=== PATIENT | male | born 1950 | race Caucasian/White ===

== ENCOUNTER 2017-06-17 07:54 | Emergency (ER) | payer OTHER ==
[~2017-06-17] VITALS: Ht 180.3 cm; Wt 134.4 kg
[~2017-06-17 07:54] MED LIST: BENA1TAB11 PO
[2017-06-17] MEDS ORDERED: ATOR40TA78 PO (08:16)
[2017-06-17] MEDS ORDERED: ZOLP6.253 PO (08:16)
[2017-06-17 08:44] LABS: BASOPHILS # (AUTO) 0.08 x10^3/uL (0-0.1); BASOPHILS % (AUTO) 1 % (0-1); EOSINOPHILS # (AUTO) 0.28 x10^3/uL (0-0.4); EOSINOPHILS % (AUTO) 2 % (1-7); LYMPHOCYTES # (AUTO) 2.39 x10^3/uL (1-3.4); LYMPHOCYTES % (AUTO) 19 % (22-44); MD NO; MEAN CORPUSCULAR HEMOGLOBIN 28.9 pg (27.5-34.5); MEAN CORPUSCULAR VOLUME 87.6 fL (81-97); MEAN PLATELET VOLUME 8.9 fL (7.4-10.4); MONOCYTES # (AUTO) 0.85 x10^3/uL (0.2-0.8); MONOCYTES % (AUTO) 7 % (2-9); NEUTROPHILS # (AUTO) 9.04 x10^3/uL (1.8-6.8); NEUTROPHILS % (AUTO) 72 % (42-75); PLATELET COUNT 288 x10^3/uL (130-400); RED BLOOD COUNT 5.41 x10^6/uL (4.38-5.82); RED CELL DISTRIBUTION WIDTH 13.8 % (9.4-14.8)
[2017-06-17 08:48] LABS: ALANINE AMINOTRANSFERASE 23 U/L (12-78); ALBUMIN 3.7 g/dL (3.4-5.0); ANION GAP 7 mmol/L (5-15); CALCIUM 8.8 mg/dL (8.5-10.1); CHLORIDE 104 mmol/L (98-107); CREATININE 1.14 mg/dL (0.7-1.3)
[2017-06-17 08:52] LABS: ALKALINE PHOSPHATASE 103 U/L (45-117); BILIRUBIN,TOTAL 0.5 mg/dL (0.2-1.0); TOTAL PROTEIN 7.2 g/dL (6.4-8.2)
[2017-06-17 09:02] VITALS: BP 101/56
== END 2017-06-17 09:20 | disposition home or self-care (01) ==
LOC: ED 08:21
DX: J20.8 Acute bronchitis due to other specified organisms (principal); B96.89 Other specified bacterial agents as the cause of diseases classified elsewhere; I10 Essential (primary) hypertension; E78.00 Pure hypercholesterolemia, unspecified; Z87.891 Personal history of nicotine dependence
CPT/HCPCS: 36415; 71045; 80053; 83880; 85025; 93005; 99285

== ENCOUNTER → 2018-02-26 | Outpatient (CLI) | payer OTHER ==
[~2018-02-26] MED LIST changes: +ATOR20TA9 PO; +ATOR40TA78 PO; +BENA1TAB9 PO; +CHOL2000 PO; +ZOLP10TA5 PO; +ZOLP6.253 PO
[2018-02-26 11:52] LABS: ALANINE AMINOTRANSFERASE 33 U/L (12-78); ANION GAP 11 mmol/L (5-15); CALCIUM 9.4 mg/dL (8.5-10.1); CHLORIDE 102 mmol/L (98-107); CREATININE 1.05 mg/dL (0.7-1.3)
[2018-02-26 11:54] LABS: ALKALINE PHOSPHATASE 100 U/L (45-117); BILIRUBIN,TOTAL 0.7 mg/dL (0.2-1.0); TOTAL PROTEIN 7.9 g/dL (6.4-8.2)
== END | disposition home or self-care (01) ==
LOC: STAR 10:33
PROVIDERS: ATTEND Thoracic Surgery (Cardiothoracic Vascular Surgery)
DX: Z01.818 Encounter for other preprocedural examination (principal); I44.0 Atrioventricular block, first degree; I25.2 Old myocardial infarction
CPT/HCPCS: 36415; 80053; 93005

== ENCOUNTER 2018-03-05 08:55 | Day surgery (SDC) | payer OTHER ==
[~2018-03-05] VITALS: Ht 180.3 cm; Wt 130.0 kg
[~2018-03-05 08:55] MED LIST changes: +BUPIVACAINE/PF-EPI 0.5% 1:200K ONE
[2018-03-05] MEDS ORDERED: LACTATED RINGERS 1,000 ML IV SCH ×2 (09:08→13:31)
[2018-03-05 09:23] VITALS: BP 102/63
[2018-03-05] MEDS ORDERED: FENTANYL PF 250 MCG/5ML ONE (11:11)
[2018-03-05] MEDS ORDERED: MIDAZOLAM 1 MG/ML, 2ML ONE (11:11)
[2018-03-05] MEDS ORDERED: NEOSTIGMINE 1 MG/ML, 10ML ONE (11:39)
[2018-03-05] MEDS ORDERED: GLYCOPYRROLATE 0.2MG/1ML, 5ML ONE (11:39)
[2018-03-05] MEDS ORDERED: ROCURONIUM 10 MG/ML,10ML ONE (11:39)
[2018-03-05] MEDS ORDERED: PROPOFOL 10 MG/ML, 20ML ONE (11:39)
[2018-03-05] MEDS ORDERED: ONDANSETRON 2MG/ML, 2ML ONE (11:39)
[2018-03-05] MEDS ORDERED: DEXAMETHASONE 4 MG/ML, 1ML ONE (11:39)
[2018-03-05] MEDS ORDERED: CEFAZOLIN 1,000 MG ONE (11:39)
[2018-03-05] MEDS ORDERED: BUPIVACAINE/PF-EPI 0.5% 1:200K INFIL ONE (12:14)
[2018-03-05] MEDS ORDERED: hydrALAzine 20 MG/ML, 1ML IV PRN (12:30)
[2018-03-05] MEDS ORDERED: ACETAMINOPHEN 325 MG TABLET PO PRN (12:30)
[2018-03-05] MEDS ORDERED: LABETALOL 5MG/ML, 20ML IV PRN (12:30)
[2018-03-05] MEDS ORDERED: ALBUTEROL SULFATE 2.5 MG/3 ML NPPB PRN (12:30)
[2018-03-05] MEDS ORDERED: LORazepam 2 MG/ML, 1ML IVPush PRN (12:30)
[2018-03-05] MEDS ORDERED: OXYcodone 5 MG/5 ML ORAL.SOL UDC PO PRN (12:30)
[2018-03-05] MEDS ORDERED: HYDROmorphone 1 MG/ML, 1ML IV PRN (12:30)
[2018-03-05] MEDS ORDERED: KETOROLAC 30 MG/1 ML ONE (13:35)
[2018-03-05] MEDS: FENTANYL PF 100 MCG/2ML IV PRN ×3 (13:35→14:10)
[2018-03-05] MEDS ORDERED: FENTANYL PF 100 MCG/2ML ONE ×2 (13:35→14:13)
[2018-03-05] MEDS ORDERED: OXYcodone 5 MG/5 ML ORAL.SOL UDC ONE (13:40)
[2018-03-05] MEDS ORDERED: KETOROLAC 30 MG/1 ML IVPush PRN ×2 (14:00→15:11)
[2018-03-05] MEDS ORDERED: HYDROmorphone 2 MG/ML, 1ML IVPush PRN (14:00)
[2018-03-05] MEDS ORDERED: ONDANSETRON 2MG/ML, 2ML IVPush PRN (14:00)
[2018-03-05] MEDS: HYDROcodone/APAP 5/325 TABLET PO PRN ×2 (15:36→18:44)
== END 2018-03-05 18:55 | disposition home or self-care (01) ==
LOC: OUT 08:55
PROVIDERS: ATTEND Thoracic Surgery (Cardiothoracic Vascular Surgery)
DX: K43.2 Incisional hernia without obstruction or gangrene (principal); I10 Essential (primary) hypertension; E78.5 Hyperlipidemia, unspecified; E66.01 Morbid (severe) obesity due to excess calories; Z68.41 Body mass index [BMI] 40.0-44.9, adult
CPT/HCPCS: 49656; C1781; J0690; J1100; J1885; J2250; J2405; J2704; J2710; J3010; J3490

== ENCOUNTER → 2018-11-15 | Outpatient (CLI) | payer OTHER ==
[~2018-11-15] MED LIST changes: +ATOR20TA37 PO; -ATOR20TA9 PO; -BUPIVACAINE/PF-EPI 0.5% 1:200K ONE
[2018-11-15 11:00] LABS: ALANINE AMINOTRANSFERASE 23 U/L (12-78); ALBUMIN 3.8 g/dL (3.4-5.0); ANION GAP 6 mmol/L (5-15); CALCIUM 8.9 mg/dL (8.5-10.1); CHLORIDE 105 mmol/L (98-107)
[2018-11-15 11:03] LABS: ALKALINE PHOSPHATASE 107 U/L (45-117); BILIRUBIN,TOTAL 0.8 mg/dL (0.2-1.0); CREATININE 1.17 mg/dL (0.7-1.3); TOTAL PROTEIN 7.4 g/dL (6.4-8.2)
== END | disposition home or self-care (01) ==
LOC: STAR 09:50
PROVIDERS: ATTEND Thoracic Surgery (Cardiothoracic Vascular Surgery)
DX: Z01.818 Encounter for other preprocedural examination (principal); K43.9 Ventral hernia without obstruction or gangrene; R94.31 Abnormal electrocardiogram [ECG] [EKG]
CPT/HCPCS: 36415; 80053; 93005

== ENCOUNTER 2018-11-24 06:45 | Observation (INO) | payer OTHER ==
[~2018-11-24] VITALS: Ht 180.3 cm; Wt 129.0 kg
[2018-11-24] MEDS ORDERED: EPINEPHRINE 1 MG/ML, 1ML ONE (07:00)
[2018-11-24] MEDS ORDERED: BUPIVACAINE/PF 0.5% ONE (07:00)
[2018-11-24] MEDS ORDERED: LACTATED RINGERS 1,000 ML IV SCH (07:40)
[2018-11-24] MEDS ORDERED: TAMSULOSIN 0.4 MG CAP.ER.24H PO ONE (08:39)
[2018-11-24] MEDS ORDERED: TAMSULOSIN 0.4 MG CAP.ER.24H ONE (08:43)
[2018-11-24] MEDS ORDERED: FENTANYL PF 250 MCG/5ML ONE (08:55)
[2018-11-24] MEDS ORDERED: PROPOFOL 50 ML ONE (08:55)
[2018-11-24] MEDS ORDERED: MIDAZOLAM 1 MG/ML, 2ML ONE (08:55)
[2018-11-24] MEDS ORDERED: ROCURONIUM 10 MG/ML,10ML ONE (09:07)
[2018-11-24] MEDS ORDERED: KETOROLAC 30 MG/1 ML ONE (09:07)
[2018-11-24] MEDS ORDERED: ONDANSETRON 2MG/ML, 2ML ONE ×2 (09:23)
[2018-11-24] MEDS ORDERED: DEXAMETHASONE 4 MG/ML, 1ML ONE (09:23)
[2018-11-24] MEDS ORDERED: SUCCINYLCHOLINE 20 MG/ML, 10ML ONE (09:23)
[2018-11-24] MEDS ORDERED: PROPOFOL 10 MG/ML, 20ML ONE (09:23)
[2018-11-24] MEDS ORDERED: CEFAZOLIN 1,000 MG ONE ×2 (09:26)
[2018-11-24] MEDS ORDERED: EPHEDRINE 50 MG/ML, 1ML IVPush PRN (09:30)
[2018-11-24] MEDS ORDERED: OXYcodone 5 MG/5 ML ORAL.SOL UDC PO PRN (09:30)
[2018-11-24] MEDS ORDERED: MIDAZOLAM 1 MG/ML, 2ML IV PRN (09:30)
[2018-11-24] MEDS ORDERED: hydrALAzine 20 MG/ML, 1ML IV PRN ×2 (09:30→10:30)
[2018-11-24] MEDS ORDERED: PROMETHAZINE 25 MG/ML, 1ML IV PRN (09:30)
[2018-11-24] MEDS ORDERED: MEPERIDINE/PF 25MG/0.5ML IVPush PRN (09:30)
[2018-11-24] MEDS ORDERED: ONDANSETRON ODT 8 MG PO PRN (09:30)
[2018-11-24] MEDS ORDERED: ACETAMINOPHEN 325 MG TABLET PO PRN (09:30)
[2018-11-24] MEDS ORDERED: DIAZEPAM 5 MG/ML, 2ML IVPush PRN (09:30)
[2018-11-24] MEDS ORDERED: EPHEDRINE 50 MG/ML, 1ML IM PRN (09:30)
[2018-11-24] MEDS ORDERED: ONDANSETRON 2MG/ML, 2ML IV PRN (09:30)
[2018-11-24] MEDS ORDERED: DIPHENHYDRAMINE 50 MG/ML, 1ML IVPush PRN (09:30)
[2018-11-24] MEDS ORDERED: METOPROLOL 1 MG/ML, 5ML IV PRN (09:30)
[2018-11-24] MEDS: LACTATED RINGERS 1,000 ML IV SCH ×3 (10:27→21:35)
[2018-11-24] MEDS ORDERED: PROMETHAZINE 12.5 MG SUPP PR PRN (10:30)
[2018-11-24] MEDS ORDERED: LORazepam 1MG TABLET PO PRN (10:30)
[2018-11-24] MEDS ORDERED: ACETAMINOPHEN 650 MG/20.3 ML UDC PO PRN (10:30)
[2018-11-24] MEDS: FAMOTIDINE 20 MG/2 ML IV SCH ×2 (10:30→22:30)
[2018-11-24] MEDS ORDERED: ENALAPRILAT 1.25 MG/ML, 2ML IV PRN (10:30)
[2018-11-24] MEDS: FAMOTIDINE 20 MG TABLET PO SCH ×2 (10:30→22:38)
[2018-11-24] MEDS ORDERED: ONDANSETRON 2MG/ML, 2ML IVPush PRN (10:30)
[2018-11-24] MEDS ORDERED: KETOROLAC 30 MG/1 ML IV PRN (10:30)
[2018-11-24] MEDS ORDERED: LORazepam 2 MG/ML, 1ML IV PRN (10:30)
[2018-11-24] MEDS ORDERED: DIPHENHYDRAMINE 50 MG/ML, 1ML IV PRN (10:30)
[2018-11-24] MEDS ORDERED: morphine SULFATE 10 MG/ML, 1ML IV PRN (10:30)
[2018-11-24] MEDS ORDERED: DIPHENHYDRAMINE 25 MG CAPSULE PO PRN (10:30)
[2018-11-24] MEDS ORDERED: PROMETHAZINE 25 MG/ML, 1ML IM PRN (10:30)
[2018-11-24] MEDS ORDERED: EPHEDRINE 50 MG/ML, 1ML ONE (10:48)
[2018-11-24] MEDS ORDERED: OXYcodone 5 MG/5 ML ORAL.SOL UDC ONE (10:48)
[2018-11-24] MEDS ORDERED: ALBUTEROL SULFATE 2.5MG/0.5ML NPPB ONE (11:00)
[2018-11-24] MEDS ORDERED: ALBUTEROL SULFATE 2.5 MG/3 ML ONE (11:01)
[2018-11-24] MEDS ORDERED: MORPHINE SULFATE 4 MG/ML, 1ML ONE (11:15)
[2018-11-24] MEDS ORDERED: FENTANYL PF 100 MCG/2ML ONE ×2 (11:15→11:52)
[2018-11-24] MEDS: MORPHINE SULFATE 4 MG/ML, 1ML IVPush PRN ×4 (11:18→11:54)
[2018-11-24] MEDS: FENTANYL PF 100 MCG/2ML IV PRN ×5 (11:18→11:59)
[2018-11-24] MEDS ORDERED: morphine SULFATE 10 MG/ML, 1ML ONE (11:27)
[2018-11-24] MEDS ORDERED: MEPERIDINE/PF 25MG/ML,1ML ONE (11:44)
[2018-11-24] MEDS: CEFAZOLIN PMX 2GM/100ML 100 ML IVPB SCH (17:18)
[2018-11-24 19:52] VITALS: BP 96/63
[2018-11-24 22:37] VITALS: BP 105/68
[2018-11-24] MEDS: HYDROcodone/APAP 5/325 TABLET PO PRN (22:38)
[2018-11-24 23:45] VITALS: BP 109/69
[2018-11-25] MEDS: CEFAZOLIN PMX 2GM/100ML 100 ML IVPB SCH (00:50)
[2018-11-25 03:45] VITALS: BP 114/74
[2018-11-25 07:45] VITALS: BP 106/69
[2018-11-25] MEDS ORDERED: ENOXAPARIN 40 MG/0.4 ML SQ SCH (09:00)
[2018-11-25] MEDS: HYDROcodone/APAP 5/325 TABLET PO PRN (09:34)
[2018-11-25] MEDS ORDERED: HYDR-3240 PO (10:02)
== END 2018-11-25 10:23 | disposition home or self-care (01) ==
LOC: OUT 06:45 → ORIP 10:27 → 4NOR 13:16 → DCLOUNGE 11-25 10:11
PROVIDERS: ADMIT Thoracic Surgery (Cardiothoracic Vascular Surgery); ATTEND Thoracic Surgery (Cardiothoracic Vascular Surgery)
DX: K43.2 Incisional hernia without obstruction or gangrene (principal); I10 Essential (primary) hypertension; E66.01 Morbid (severe) obesity due to excess calories; Z68.39 Body mass index [BMI] 39.0-39.9, adult; E78.00 Pure hypercholesterolemia, unspecified; Z79.899 Other long term (current) drug therapy
CPT/HCPCS: 49566; 94640; 96365; 96366; 96372; 96375; C1729; C1781; G0378; J0171; J0330; J0690; J1100; J1650; J1885; J2175; J2250; J2270; J2405; J2704; J3010; J7120; J7611; S0020

== ENCOUNTER 2018-11-27 08:20 | Inpatient (IN) | payer OTHER ==
[~2018-11-27] VITALS: Ht 180.3 cm; Wt 128.6 kg
[~2018-11-27 08:20] MED LIST changes: +HYDR-3240 PO
--- NOTE | 2018-11-27 08:40 | NUR ---
PT ARRIVED VIA WHEELCHAIR TO ROOM 14 WITH . PT C/O INCREASING SOB THIS AM WITH ASSOCIATED N/V AND ABDOMINAL PAIN. PT STATES HE HAD A UMBILLICAL HERNIA REPAIR WITH [facility]ESH ON THURSDAY. HE REPORTS HE HAS BEEN TAKING PAIN MEDICATION AND STOOL SOFTENERS BUT HAS NOT HAD A BM SINCE THURSDAY. PT ABDOMEN TENDER TO PALPATION, FIRM, AND SKIN IS TAUT. PT AAO X 4, O2 SATS ON ROOM AIR WDL BUT PT HAS UPPER AIRWAY EXPIRATORY WHEEZES, RESOLVED WITH REPOSITIONING. PT IN GOWN, INCISION SITE DRESSING CDI, ABDOMINAL BINDER IN PLACE, EFREN DRAIN TO SELF-SUCTION AND PT REPORTS ABOUT 20ML SEROUSANG DRAINAGE PER DAY.
[2018-11-27 09:27] LABS: BASOPHILS # (AUTO) 0.03 x10^3/uL (0-0.1); BASOPHILS % (AUTO) 0 % (0-1); EOSINOPHILS # (AUTO) 0.04 x10^3/uL (0-0.4); EOSINOPHILS % (AUTO) 0 % (1-7); LYMPHOCYTES # (AUTO) 0.72 x10^3/uL (1-3.4); LYMPHOCYTES % (AUTO) 5 % (22-44); MD NO; MEAN CORPUSCULAR HEMOGLOBIN 29.2 pg (27.5-34.5); MEAN CORPUSCULAR HGB CONC 32.7 g/dL (33.2-36.2); MEAN CORPUSCULAR VOLUME 89.2 fL (81-97); MEAN PLATELET VOLUME 8.3 fL (7.4-10.4); MONOCYTES # (AUTO) 0.94 x10^3/uL (0.2-0.8); MONOCYTES % (AUTO) 7 % (2-9); NEUTROPHILS # (AUTO) 12.58 x10^3/uL (1.8-6.8); NEUTROPHILS % (AUTO) 88 % (42-75); PLATELET COUNT 288 x10^3/uL (130-400); RED BLOOD COUNT 5.31 x10^6/uL (4.38-5.82); RED CELL DISTRIBUTION WIDTH 13.8 % (9.4-14.8)
[2018-11-27 09:44] LABS: ALBUMIN 3.6 g/dL (3.4-5.0); ANION GAP 12 mmol/L (5-15); CALCIUM 10.2 mg/dL (8.5-10.1); CHLORIDE 99 mmol/L (98-107)
--- NOTE | 2018-11-27 09:46 | NUR ---
WAITING ON LAB RESULTS TO PERFORM CT
[2018-11-27 09:47] LABS: ALANINE AMINOTRANSFERASE 24 U/L (12-78); ALKALINE PHOSPHATASE 101 U/L (45-117); BILIRUBIN,TOTAL 1.3 mg/dL (0.2-1.0); CREATININE 1.19 mg/dL (0.7-1.3); TOTAL PROTEIN 7.7 g/dL (6.4-8.2)
--- NOTE | 2018-11-27 10:16 | NUR ---
PT TO CT.
--- NOTE | 2018-11-27 10:35 | NUR ---
PT BACK FROM CT. ATTACHED TO MONITOR. VSS, PT AAO X 4, FALL PRECAUTIONS IN PLACE.
[2018-11-27] MEDS ORDERED: OMNIPAQUE 350 MG/ML, 100ML BOTTLE ONE (10:49)
--- NOTE | 2018-11-27 11:00 | NUR ---
PT RESTING IN RFARGO, AAO X 4, VSS, FALL PRECAUTIONS IN PLACE, AT BEDSIDE.
[2018-11-27] MEDS ORDERED: METOCLOPRAMIDE 5 MG/ML, 2ML IVPush ONE (12:00)
[2018-11-27] MEDS ORDERED: METOCLOPRAMIDE 5 MG/ML, 2ML ONE (12:26)
[2018-11-27] MEDS ORDERED: BISACODYL 10 MG SUPP PR PRN (12:30)
[2018-11-27] MEDS ORDERED: LABETALOL 5MG/ML, 20ML IVPush PRN (12:30)
[2018-11-27] MEDS ORDERED: ENALAPRILAT 1.25 MG/ML, 2ML IVPush PRN (12:30)
[2018-11-27] MEDS ORDERED: POLYETHYLENE GLYCOL 17 GM PACKET PO PRN (12:30)
[2018-11-27] MEDS ORDERED: DOCUSATE 100 MG CAPSULE PO PRN (12:30)
[2018-11-27] MEDS ORDERED: BISACODYL 10 MG SUPP PR ONE (12:30)
[2018-11-27] MEDS ORDERED: ONDANSETRON ODT 4 MG PO PRN (12:30)
[2018-11-27] MEDS ORDERED: ONDANSETRON 2MG/ML, 2ML IVPush PRN (12:30)
--- NOTE | 2018-11-27 12:32 | NUR ---
REPORT GIVEN TO FLOOR RN.
[2018-11-27 13:06] VITALS: BP 149/92
[2018-11-27] MEDS: ENOXAPARIN 40 MG/0.4 ML SQ SCH (13:37)
[2018-11-27] MEDS: SODIUM CHLORIDE 0.9% 1,000 ML IV SCH ×2 (13:38→20:20)
[2018-11-27 14:24] VITALS: BP 104/42
[2018-11-27] MEDS ORDERED: LIDOCAINE 2%, 6 ML JEL.PF.APP MM ONE (15:44)
[2018-11-27] MEDS: METOCLOPRAMIDE 5 MG/ML, 2ML IVPush SCH (18:07)
[2018-11-27] MEDS: KETOROLAC 30 MG/1 ML IV PRN (20:20)
[2018-11-27] MEDS: FAMOTIDINE 20 MG/2 ML IVPush SCH (20:20)
[2018-11-27 20:35] VITALS: BP 158/95
[2018-11-28 00:12] VITALS: BP 97/61
[2018-11-28] MEDS: METOCLOPRAMIDE 5 MG/ML, 2ML IVPush SCH ×5 (01:06→23:57)
[2018-11-28] MEDS: SODIUM CHLORIDE 0.9% 1,000 ML IV SCH ×3 (04:08→20:08)
[2018-11-28] MEDS: KETOROLAC 30 MG/1 ML IV PRN ×3 (04:08→17:55)
[2018-11-28 04:28] LABS: EOSINOPHILS # (AUTO) 0.16 x10^3/uL (0-0.4); MD NO; MEAN CORPUSCULAR VOLUME 91.2 fL (81-97)
[2018-11-28 04:34] LABS: BASOPHILS # (AUTO) 0.03 x10^3/uL (0-0.1); BASOPHILS % (AUTO) 0 % (0-1); EOSINOPHILS % (AUTO) 2 % (1-7); LYMPHOCYTES # (AUTO) 1.07 x10^3/uL (1-3.4); LYMPHOCYTES % (AUTO) 11 % (22-44); MEAN CORPUSCULAR HEMOGLOBIN 29.8 pg (27.5-34.5); MEAN CORPUSCULAR HGB CONC 32.7 g/dL (33.2-36.2); MEAN PLATELET VOLUME 8.5 fL (7.4-10.4); MONOCYTES # (AUTO) 1.16 x10^3/uL (0.2-0.8); MONOCYTES % (AUTO) 11 % (2-9); NEUTROPHILS # (AUTO) 7.74 x10^3/uL (1.8-6.8); NEUTROPHILS % (AUTO) 76 % (42-75); PLATELET COUNT 311 x10^3/uL (130-400); RED BLOOD COUNT 4.89 x10^6/uL (4.38-5.82); RED CELL DISTRIBUTION WIDTH 14.6 % (9.4-14.8)
[2018-11-28 04:39] LABS: ALANINE AMINOTRANSFERASE 23 U/L (12-78); ANION GAP 5 mmol/L (5-15); CALCIUM 8.9 mg/dL (8.5-10.1); CHLORIDE 105 mmol/L (98-107)
[2018-11-28 04:41] LABS: ALKALINE PHOSPHATASE 76 U/L (45-117); BILIRUBIN,TOTAL 0.8 mg/dL (0.2-1.0); TOTAL PROTEIN 6.6 g/dL (6.4-8.2)
[2018-11-28 07:24] VITALS: BP 115/69
[2018-11-28] MEDS: FAMOTIDINE 20 MG/2 ML IVPush SCH ×2 (08:12→20:02)
[2018-11-28] MEDS: ENOXAPARIN 40 MG/0.4 ML SQ SCH (12:35)
[2018-11-28 12:46] VITALS: BP 124/71
[2018-11-28 20:06] VITALS: BP 148/83
[2018-11-29] MEDS: KETOROLAC 30 MG/1 ML IV PRN ×3 (00:01→15:14)
[2018-11-29 02:16] VITALS: BP 123/65
[2018-11-29] MEDS: SODIUM CHLORIDE 0.9% 1,000 ML IV SCH ×2 (04:25→12:25)
[2018-11-29] MEDS: METOCLOPRAMIDE 5 MG/ML, 2ML IVPush SCH ×3 (05:47→18:18)
[2018-11-29 06:47] VITALS: BP 110/79
[2018-11-29] MEDS: FAMOTIDINE 20 MG/2 ML IVPush SCH ×2 (07:49→20:49)
[2018-11-29 12:14] VITALS: BP 112/72
[2018-11-29] MEDS: ENOXAPARIN 40 MG/0.4 ML SQ SCH (12:35)
[2018-11-29 20:00] VITALS: BP 126/80
[2018-11-30] MEDS: METOCLOPRAMIDE 5 MG/ML, 2ML IVPush SCH ×2 (00:24→06:17)
[2018-11-30] MEDS: KETOROLAC 30 MG/1 ML IV PRN ×2 (00:24→11:12)
[2018-11-30 02:23] VITALS: BP 123/69
[2018-11-30 05:14] LABS: BASOPHILS # (AUTO) 0.03 x10^3/uL (0-0.1); BASOPHILS % (AUTO) 0 % (0-1); EOSINOPHILS % (AUTO) 7 % (1-7); LYMPHOCYTES # (AUTO) 1.88 x10^3/uL (1-3.4); LYMPHOCYTES % (AUTO) 18 % (22-44); MD NO; MEAN CORPUSCULAR HEMOGLOBIN 29.3 pg (27.5-34.5); MEAN CORPUSCULAR HGB CONC 32.3 g/dL (33.2-36.2); MEAN CORPUSCULAR VOLUME 90.8 fL (81-97); MEAN PLATELET VOLUME 8.1 fL (7.4-10.4); MONOCYTES # (AUTO) 0.86 x10^3/uL (0.2-0.8); MONOCYTES % (AUTO) 8 % (2-9); NEUTROPHILS # (AUTO) 6.92 x10^3/uL (1.8-6.8); NEUTROPHILS % (AUTO) 67 % (42-75); PLATELET COUNT 324 x10^3/uL (130-400); RED BLOOD COUNT 4.77 x10^6/uL (4.38-5.82); RED CELL DISTRIBUTION WIDTH 13.9 % (9.4-14.8)
[2018-11-30 05:20] LABS: ANION GAP 7 mmol/L (5-15); CALCIUM 8.6 mg/dL (8.5-10.1); CHLORIDE 109 mmol/L (98-107); CREATININE 1.17 mg/dL (0.7-1.3)
[2018-11-30 06:44] VITALS: BP 134/80
[2018-11-30] MEDS: FAMOTIDINE 20 MG/2 ML IVPush SCH (09:00)
[2018-11-30] MEDS ORDERED: POLYETHYLENE GLYCOL 17 GM PACKET PO SCH (09:00)
[2018-11-30] MEDS ORDERED: DOCUSATE 100 MG CAPSULE PO SCH (09:00)
[2018-11-30] MEDS ORDERED: POLY17PO5 PO (10:25)
[2018-11-30] MEDS ORDERED: DOCU-131 PO (10:25)
== END 2018-11-30 11:50 | disposition home or self-care (01) | DRG 389 ==
LOC: ED 08:36 → EDIP 11:45 → 4WST 12:40 → DCLOUNGE 11-30 11:42
PROVIDERS: ADMIT Internal Medicine; ATTEND Internal Medicine
DX: K56.0 Paralytic ileus (principal); R17 Unspecified jaundice; J98.11 Atelectasis; D72.829 Elevated white blood cell count, unspecified; I10 Essential (primary) hypertension; E78.00 Pure hypercholesterolemia, unspecified; E78.5 Hyperlipidemia, unspecified; E86.0 Dehydration; G89.29 Other chronic pain; E66.9 Obesity, unspecified; Z68.39 Body mass index [BMI] 39.0-39.9, adult; Z80.1 Family history of malignant neoplasm of trachea, bronchus and lung
CPT/HCPCS: 36415; 71275; 74177; 74340; 80048; 80053; 83735; 84100; 85025; 93005; 99285; G0378; J1650; J1885; J2405; Q9967; J2765; J3490; J7030

== ENCOUNTER 2020-04-20 07:23 | Emergency (ER) | payer OTHER ==
[~2020-04-20] VITALS: Ht 180.3 cm; Wt 124.2 kg
[~2020-04-20 07:23] MED LIST changes: +DOCU-131 PO; +POLY17PO5 PO; -ZOLP6.253 PO; +ZOLP6.255 PO
--- NOTE | 2020-04-20 07:36 | NUR ---
Pt BIB [facility]-c/o intermittent dizziness, L sided weakness x3 weeks. Pt reports sx started this morning when he woke up. Pt with tremor in L UE, L sided facial droop, reports this is not baseline. Pt with intermittent double vision and verbal stutter he reports is baseline for him. No other neuro defecits. Pt placed in gown, positioned for comfort in bed with warm blanket. Continuous heart, oxygen and BP monitors applied, all safety measures observed. Clayton JAMES at bedside to evaluate pt.
[2020-04-20] MEDS ORDERED: SODIUM CHLORIDE FLUSH 10ML SYR IVF ONE (08:00)
[2020-04-20 08:25] LABS: BASOPHILS % (AUTO) 1 % (0-1); EOSINOPHILS % (AUTO) 1 % (1-7); LYMPHOCYTES % (AUTO) 18 % (22-44); MEAN CORPUSCULAR HEMOGLOBIN 29.2 pg (27.5-34.5); MEAN CORPUSCULAR HGB CONC 33.5 g/dL (33.2-36.2); MEAN PLATELET VOLUME 9.2 fL (7.4-10.4); MONOCYTES % (AUTO) 8 % (2-9); NEUTROPHILS % (AUTO) 73 % (42-75); PLATELET COUNT 310 x10^3/uL (130-400); RED BLOOD COUNT 5.03 x10^6/uL (4.38-5.82); RED CELL DISTRIBUTION WIDTH 13.6 % (9.4-14.8)
[2020-04-20 08:46] LABS: MD NO
--- NOTE | 2020-04-20 09:00 | NUR ---
pt in bed, no distress, vss, no change,
[2020-04-20 09:10] VITALS: BP 109/47
[2020-04-20 09:13] LABS: ALANINE AMINOTRANSFERASE 19 U/L (12-78); ALBUMIN 3.8 g/dL (3.4-5.0); ANION GAP 8 mmol/L (5-15); CALCIUM 9.4 mg/dL (8.5-10.1); CHLORIDE 104 mmol/L (98-107); CREATININE 1.74 mg/dL (0.7-1.3)
[2020-04-20 09:23] LABS: ALKALINE PHOSPHATASE 107 U/L (45-117); BILIRUBIN,TOTAL 0.7 mg/dL (0.2-1.0); TOTAL PROTEIN 7.6 g/dL (6.4-8.2)
== END 2020-04-20 10:03 | disposition home or self-care (01) ==
LOC: ED 09:50
DX: I12.9 Hypertensive chronic kidney disease with stage 1 through stage 4 chronic kidney disease, or unspecified chronic kidney disease (principal); N18.2 Chronic kidney disease, stage 2 (mild); R53.1 Weakness; I21.9 Acute myocardial infarction, unspecified; R94.31 Abnormal electrocardiogram [ECG] [EKG]; E78.00 Pure hypercholesterolemia, unspecified; Z87.891 Personal history of nicotine dependence
CPT/HCPCS: 36415; 70450; 80053; 84443; 85025; 93005; 99285

== ENCOUNTER 2020-05-04 12:10 | Observation (INO) | payer OTHER ==
[~2020-05-04] VITALS: Ht 180.3 cm; Wt 121.6 kg
[2020-05-04 12:37] VITALS: BP 125/72
[2020-05-04] MEDS ORDERED: ASPIRIN 325 MG TABLET EC PO ONE (13:00)
[2020-05-04] MEDS ORDERED: PLEASE ENTER HEIGHT AND WEIGHT MC SCH (13:00)
[2020-05-04] MEDS: SODIUM CHLORIDE 0.9% 1,000 ML IV SCH ×3 (13:00→22:53)
[2020-05-04 13:24] LABS: ANION GAP 1 mmol/L (5-15); CALCIUM 9.6 mg/dL (8.5-10.1); CHLORIDE 106 mmol/L (98-107); CREATININE 1.56 mg/dL (0.7-1.3)
[2020-05-04] MEDS ORDERED: FENTANYL PF 100 MCG/2ML ONE (14:16)
[2020-05-04] MEDS ORDERED: VERAPAMIL 2.5 MG/ML, 2ML ONE (14:17)
[2020-05-04] MEDS ORDERED: MIDAZOLAM 1 MG/ML, 5ML ONE (14:17)
[2020-05-04] MEDS ORDERED: HEPARIN 1,000 UNITS/ML, 10ML ONE (14:17)
[2020-05-04] MEDS ORDERED: BIVALIRUDIN 250 MG ONE ×2 (14:17→14:43)
[2020-05-04] MEDS ORDERED: LIDOCAINE-MPF 1%, 5ML ONE (14:17)
[2020-05-04] MEDS ORDERED: TICAGRELOR 90 MG TABLET ONE ×2 (14:17→15:05)
[2020-05-04] MEDS ORDERED: NITROGLYCERIN 30 MCG/ML, 20ML VIAL ONE (14:30)
[2020-05-04] MEDS ORDERED: SODIUM CHLORIDE 0.9% 1,000 ML IV SCH (15:30)
[2020-05-04] MEDS ORDERED: METOPROLOL TARTRATE 25 MG TAB ONE (18:36)
[2020-05-04 18:51] VITALS: BP_SYST 131; BP_DIAS 75; BP_DIAS 84
[2020-05-04] MEDS ORDERED: METOPROLOL TARTRATE 50 MG TAB PO SCH ×2 (19:00)
[2020-05-04] MEDS ORDERED: ATORVASTATIN 20 MG TABLET PO SCH (21:00)
[2020-05-04] MEDS: TICAGRELOR 90 MG TABLET PO SCH (22:19)
[2020-05-04] MEDS ORDERED: ZOLPIDEM 10MG TABLET PO SCH (23:00)
[2020-05-05 00:07] VITALS: BP 112/75
[2020-05-05] MEDS: METOPROLOL TARTRATE 25 MG TAB PO SCH ×2 (00:09→08:14)
[2020-05-05 00:45] VITALS: BP 101/66
[2020-05-05 05:19] LABS: ANION GAP 6 mmol/L (5-15); CALCIUM 9.5 mg/dL (8.5-10.1); CHLORIDE 106 mmol/L (98-107); CREATININE 1.63 mg/dL (0.7-1.3)
[2020-05-05 07:09] VITALS: BP 117/78
[2020-05-05] MEDS: TICAGRELOR 90 MG TABLET PO SCH (08:11)
[2020-05-05] MEDS ORDERED: ZOLPIDEM 10MG TABLET PO SCH (09:00)
[2020-05-05] MEDS ORDERED: BENAZEPRIL 20 MG TABLET PO SCH (09:00)
[2020-05-05] MEDS ORDERED: ASPIRIN 81 MG TABLET EC PO SCH (09:00)
[2020-05-05] MEDS ORDERED: HYDROCHLOROTHIAZIDE 25 MG TABLET PO SCH (09:00)
[2020-05-05] MEDS ORDERED: BENA20TA54 PO (09:41)
[2020-05-05] MEDS ORDERED: METO50TA4 PO (09:41)
[2020-05-05] MEDS ORDERED: TICA90TA PO (09:41)
[2020-05-05] MEDS ORDERED: ASPI81TA45 PO (10:32)
== END 2020-05-05 12:25 | disposition home or self-care (01) ==
LOC: CACL 12:10 → ORIP 15:20 → 5SO 17:13 → DCLOUNGE 05-05 12:14
PROVIDERS: ADMIT Internal Medicine Cardiovascular Disease; ATTEND Internal Medicine Cardiovascular Disease
DX: I25.110 Atherosclerotic heart disease of native coronary artery with unstable angina pectoris (principal); I48.0 Paroxysmal atrial fibrillation; E78.5 Hyperlipidemia, unspecified; I10 Essential (primary) hypertension; R42 Dizziness and giddiness; R00.2 Palpitations; R06.02 Shortness of breath; R47.9 Unspecified speech disturbances; Z79.899 Other long term (current) drug therapy
CPT/HCPCS: 36415; 80048; 85014; 85018; 93005; 93458; 99156; 99157; C1725; C1769; C1874; C1887; C1894; C9600; G0378; J0583; J1644; J2250; J3010; Q9967

== ENCOUNTER 2020-05-28 23:30 | Observation (INO) | payer OTHER ==
[~2020-05-28] VITALS: Ht 180.3 cm; Wt 125.0 kg
[~2020-05-28 23:30] MED LIST changes: +ASPI81TA45 PO; +BENA20TA54 PO; +METO50TA4 PO; +TICA90TA PO
[2020-05-29] MEDS ORDERED: SODIUM CHLORIDE FLUSH 10ML SYR IVF ONE
[2020-05-29 00:25] LABS: BASOPHILS % (AUTO) 1 % (0-1); EOSINOPHILS % (AUTO) 3 % (1-7); LYMPHOCYTES % (AUTO) 25 % (22-44); MEAN CORPUSCULAR HGB CONC 32.9 g/dL (33.2-36.2); MEAN PLATELET VOLUME 8.8 fL (7.4-10.4); MONOCYTES % (AUTO) 9 % (2-9); NEUTROPHILS % (AUTO) 62 % (42-75); PLATELET COUNT 289 x10^3/uL (130-400); RED BLOOD COUNT 4.46 x10^6/uL (4.38-5.82); RED CELL DISTRIBUTION WIDTH 13.9 % (9.4-14.8)
[2020-05-29 00:36] LABS: ALANINE AMINOTRANSFERASE 20 U/L (12-78); ALBUMIN 3.4 g/dL (3.4-5.0); ANION GAP 4 mmol/L (5-15); CALCIUM 8.8 mg/dL (8.5-10.1); CHLORIDE 107 mmol/L (98-107)
--- NOTE | 2020-05-29 00:36 | NUR ---
pt to room from lobby
[2020-05-29 00:40] LABS: ALKALINE PHOSPHATASE 122 U/L (45-117); BILIRUBIN,TOTAL 0.2 mg/dL (0.2-1.0); TOTAL PROTEIN 6.8 g/dL (6.4-8.2); TROPONIN I < 0.015 ng/mL (0.000-0.045)
[2020-05-29 00:41] LABS: MD NO
--- NOTE | 2020-05-29 00:45 | NUR ---
PT WAS UNCLEAR ABOUT MEDICAL HX. "3 WEEKS AGO I HAD A STENT PLACED, THEY TOLD ME I WASN'T HAVING A HEART ATTACK, I DIDN'T HAVE A STROKE AND NOT TO SWEAT THE LITTLE STUFF. BUT IT WAS WEIRD LEADING UP TO THE STENT PLACEMENT I WOULD GET DIZZY AND SWEATY." PT DENIES EXPERIENCING ORTHOPNEA, DENIES CP. CHEIF COMPLAINT OF SHORTNESS OF BREATH AND A COUGH THAT COMES SPORADICALLY AND IS INCESENT WHEN IT COMES FOR APPROX A MINUTE. DRY COUGH. PT WAS CONNECTED TO CARDIAC, BP AND O2 MONITORS, HE HAD CALL LIGHT IN REACH AND ALL NEEDS WERE MET.
--- NOTE | 2020-05-29 00:50 | NUR ---
CAROLEE AT BEDSIDE FOR EVAL.
--- NOTE | 2020-05-29 01:40 | NUR ---
PT TO IMAGING AT 0130.
--- NOTE | 2020-05-29 03:01 | NUR ---
PT AMBULATORY TO BATHROOM, STEADY GAIT.
--- NOTE | 2020-05-29 03:11 | NUR ---
PT ON HOSPITAL BED.
[2020-05-29] MEDS ORDERED: PRAS10TA4 PO (03:14)
[2020-05-29] MEDS ORDERED: CEFDINIR 125 MG/5 ML, ORAL SUSP ONE (03:29)
--- NOTE | 2020-05-29 05:14 | NUR ---
PT AMBULATORY TO BATHROOM, STEADY GAIT.
--- NOTE | 2020-05-29 07:02 | NUR ---
REPORT TO ANGÉLICA PANCHAL. PT SITTING IN BED, VSS. MCMAHON.
--- NOTE | 2020-05-29 09:48 | NUR ---
ECHO DEPARTMENT CALLED TO EXPEDITE ECHOCARDIOGRAM ORDERED BY ADMITTING MD. [facility]FIRMED WITH PT [facility]
--- NOTE | 2020-05-29 10:18 | NUR ---
DR JIMENEZ CALLED TO UPDATE, ADDITIONAL ORDERS RECIEIVED. TROP ORDERED FOR NOW, IF NEGATIVE WILL FEED PT PER MD
[2020-05-29 10:53] LABS: TROPONIN I < 0.015 ng/mL (0.000-0.045)
--- NOTE | 2020-05-29 12:14 | NUR ---
BREAK RN- HOSP AT BEDSIDE FOR EVALUATION. PT RESTING IN BED, CALL LIGHT IN REACH. LUNCH PROVIDED.
[2020-05-29] MEDS ORDERED: ONDANSETRON ODT 4 MG PO PRN (14:00)
--- NOTE | 2020-05-29 14:59 | NUR ---
PER THOUGHPUT RN, PT NEGATIVE FOR COVID
--- NOTE | 2020-05-29 16:07 | NUR ---
DR JIMENEZ CALLED PER PT REQUEST, WILL UPDATE PT ON POC
[2020-05-29] MEDS ORDERED: ENOXAPARIN 40 MG/0.4 ML SQ SCH (18:00)
--- NOTE | 2020-05-29 18:01 | NUR ---
PT UPDATED ON POC, VSS. MEAL TRAY PROVIDED
--- NOTE | 2020-05-29 18:54 | NUR ---
REPORT TO YONAS LINDSAY
[2020-05-29 20:27] VITALS: BP 139/84
[2020-05-29] MEDS ORDERED: METOPROLOL SUCCINATE 25 MG TAB.ER.24H PO SCH (21:00)
[2020-05-29] MEDS ORDERED: ATORVASTATIN 20 MG TABLET PO SCH (21:00)
[2020-05-29] MEDS ORDERED: ZOLPIDEM 10MG TABLET PO PRN (21:00)
[2020-05-30] MEDS: BENZONATATE 100 MG CAPSULE PO PRN ×2 (00:45→09:05)
[2020-05-30 01:58] VITALS: BP 129/78
[2020-05-30 08:44] VITALS: BP 132/76
[2020-05-30] MEDS ORDERED: BENAZEPRIL 20 MG TABLET PO SCH (09:00)
[2020-05-30] MEDS ORDERED: ASPIRIN 81 MG TABLET EC PO SCH (09:00)
[2020-05-30] MEDS ORDERED: FUROSEMIDE 20 MG TABLET PO ONE (09:00)
[2020-05-30] MEDS ORDERED: PRASUGREL 10 MG TABLET PO SCH (09:00)
[2020-05-30] MEDS ORDERED: METO25TA91 PO (11:14)
[2020-05-30 12:18] VITALS: BP 123/69
== END 2020-05-30 13:25 | disposition home or self-care (01) ==
LOC: ED 05-29 03:20 → EDIP 05-29 04:08 → INTOOBSV 05-29 04:08 → 5SO 05-29 20:00 → DCLOUNGE 05-30 13:20
PROVIDERS: ADMIT Family Medicine; ATTEND Family Medicine
DX: R07.89 Other chest pain (principal); R06.00 Dyspnea, unspecified; I45.2 Bifascicular block; E78.5 Hyperlipidemia, unspecified; G47.00 Insomnia, unspecified; I25.10 Atherosclerotic heart disease of native coronary artery without angina pectoris; I10 Essential (primary) hypertension; E78.00 Pure hypercholesterolemia, unspecified; I35.8 Other nonrheumatic aortic valve disorders; Z95.5 Presence of coronary angioplasty implant and graft; Z87.891 Personal history of nicotine dependence; Z79.899 Other long term (current) drug therapy; Z79.82 Long term (current) use of aspirin
CPT/HCPCS: 36415; 71045; 71275; 80053; 83880; 84443; 84484; 85025; 93005; 93306; 96372; 99285; G0378; J1650